=== PATIENT | female | born 1960 | race Hispanic/Latino ===

== ENCOUNTER 2022-12-08 00:47 | Emergency (ER) | payer BC ==
[2022-12-08] MEDS ORDERED: methylPREDNISolone Sod Succ/PF 125 MG/2 ML VIAL ONE (00:56)
[2022-12-08] MEDS ORDERED: diphenhydrAMINE 50 MG/ML VIAL ONE (00:56)
[2022-12-08] MEDS ORDERED: EPINEPHrine 1 MG/ML VIAL ONE (00:56)
[2022-12-08 01:06] LABS: Mean Corpuscular HGB CONC 34.5 g/dL (32.0-36.0); Mean Corpuscular Hemoglobin 29.1 pg (27.0-31.0); Mean Corpuscular Volume 84.4 fl (78.0-98.0); Mean Platelet Volume 8.7 fL (7.4-10.4); Platelet Count 379 10x3/uL (130-400); RBC Distribution Width 12.3 % (11.5-14.5); Red Blood Cell (RBC) Count 4.81 mill/uL (4.20-5.40); White Blood Cell (WBC) Count 10.5 10x3/uL (4.8-10.8)
[2022-12-08 01:11] LABS: Delete Auto Diff?? YES; Manual Diff?? YES
[2022-12-08 01:26] LABS: ALT (SGPT) 21 U/L (8-55); AST (SGOT) 17 U/L (5-34); Albumin 4.1 g/dL (3.5-5.0); Alkaline Phosphatase 84 U/L (40-110); Anion Gap 12 mmol/L (10-20); BUN (Urea Nitrogen) 19 mg/dL (9.8-20.1); Bilirubin, Total 0.2 mg/dL (0.2-1.2); Calc. Creatinine Clearance 0 mL/min (70-130); Calcium 9.1 mg/dL (7.8-10.44); Carbon Dioxide 26 mmol/L (22-29); Chloride 100 mmol/L (98-107); Estimated GFR 78; Globulin 2.9 g/dL (2.4-3.5); Glucose 271 mg/dL (70-105); Potassium 4.3 mmol/L (3.5-5.1); Sodium 134 mmol/L (136-145)
[2022-12-08 01:52] LABS: Anisocytosis SLIGHT = 6-15 cells HPF (0-5); Band 2 % (5-11); CellaVision Operator ID LAB.CLH1; Eosinophils 1 % (0-10); Large Platelets 0.9 % (0-5); Lymphocytes 45 % (21-51); Monocytes 9 % (0-10); Neutrophil 42 % (42-75); Platelet Adequacy Comment Platelets Normal; Reactive Lymphocytes 1 % (0-10); Total Cell Count 115
== END 2022-12-08 03:26 | disposition home or self-care (01) ==
LOC: ERS 00:47
DX: R21 Rash and other nonspecific skin eruption (principal); T50.995A Adverse effect of other drugs, medicaments and biological substances, initial encounter; I10 Essential (primary) hypertension; E11.9 Type 2 diabetes mellitus without complications
CPT/HCPCS: 71045; 80053; 85025; 93005; 96372; 96374; 96375; J0171; J1200; J2930